=== PATIENT | female | born 1965 | race Caucasian/White ===

== ENCOUNTER → 2016-06-27 | Outpatient (REF) | payer OTHER | LOC: M LAB REF 16:37 | PROVIDERS: ATTEND Internal Medicine | DX: L03.211 Cellulitis of face (principal) ==

== ENCOUNTER → 2016-07-06 | Outpatient (REF) | payer OTHER | LOC: M LAB REF 16:22 | PROVIDERS: ATTEND Nurse Practitioner Family | DX: L03.213 Periorbital cellulitis (principal) ==

== ENCOUNTER → 2016-08-21 | Outpatient (REF) | payer OTHER | LOC: M LAB REF 17:10 | PROVIDERS: ATTEND Nurse Practitioner Family | DX: L03.213 Periorbital cellulitis (principal) ==